=== PATIENT | female | born 1980 | race African-American/Black ===

== ENCOUNTER 2018-12-05 09:56 | Emergency (ER) | payer OTHER ==
[~2018-12-05] VITALS: Ht 162.6 cm; Wt 90.3 kg
[2018-12-05] MEDS ORDERED: BUPIVACAINE HCL/PF 0.25% 30 ML VIAL INJ ONE (11:30)
[2018-12-05] MEDS ORDERED: IBUPROFEN 600 MG TABLET PO ONE (11:30)
[2018-12-05] MEDS ORDERED: BACITRACIN 0.9 GM PACKET OINTMENT TP ONE (11:30)
[2018-12-05] MEDS ORDERED: AMOX TR/POT CLAV 875 MG/125 MG TABLET PO ONE (11:30)
[2018-12-05] MEDS ORDERED: HYDROGEN PEROXIDE 118 ML SOLUTION TP ONE (12:45)
[2018-12-05 13:09] VITALS: BP 130/71
== END 2018-12-05 13:39 | disposition home or self-care (01) ==
LOC: EMS 10:05
DX: S62.524B Nondisplaced fracture of distal phalanx of right thumb, initial encounter for open fracture (principal); Y04.1XXA Assault by human bite, initial encounter; Y93.89 Activity, other specified; Y92.89 Other specified places as the place of occurrence of the external cause; Y99.8 Other external cause status
CPT/HCPCS: 12002; 73130; 99284; J3490